=== PATIENT | male | born 1955 | race African-American/Black ===

== ENCOUNTER 2018-01-19 04:57 | Inpatient (IN) | payer BC ==
[2018-01-19] VITALS (8 sets, daily range): BP systolic 130–167; BP diastolic 70–92
[~2018-01-19] VITALS: Ht 190.5 cm; Wt 108.9 kg
[~2018-01-19 04:57] MED LIST: NAPROSYN500 M1 ORAL; PREDNISONE50 MG ORAL
[2018-01-19] MEDS ORDERED: REPAGLINIDE1 MG PO (05:19)
[2018-01-19] MEDS ORDERED: LABETALOL HCL200 MG ORAL (05:19)
[2018-01-19] MEDS ORDERED: AMLODIPINE BESY10 MG ORAL (05:19)
[2018-01-19] MEDS ORDERED: VP-VITE RX TAB1 EACH PO (05:19)
[2018-01-19] MEDS ORDERED: CATAPRES0.2 MG ORAL (05:19)
[2018-01-19] MEDS ORDERED: BETIMOL5 M2 OP (05:19)
[2018-01-19] MEDS ORDERED: ASPIR 8181 MG ORAL (05:19)
[2018-01-19] MEDS ORDERED: PRAVACHOL20 MG ORAL (05:19)
[2018-01-19 05:37] LABS: HEMATOCRIT 26.2 % (42.0-52.0); HEMOGLOBIN 8.2 G/DL (14.2-18.0); MEAN CORPUSCULAR VOLUME 95 FL (80-99); PLATELET COUNT 224 K/UL (150-450); RED BLOOD COUNT 2.76 M/UL (4.70-6.10); RED CELL DISTRIBUTION WIDTH 16.2 % (11.6-14.8); WHITE BLOOD COUNT 12.1 K/UL (4.8-10.8)
[2018-01-19 05:47] LABS: ANION GAP 8 mmol/L (5-15); BLOOD UREA NITROGEN 48 mg/dL (7-18); CALCIUM 9.1 MG/DL (8.5-10.1); CARBON DIOXIDE 30 MMOL/L (21-32); CHLORIDE 100 MMOL/L (98-107); CREATININE 7.4 MG/DL (0.55-1.30); POTASSIUM 3.8 MMOL/L (3.5-5.1); SODIUM 138 MMOL/L (136-145)
[2018-01-19 06:01] LABS: ALANINE AMINOTRANSFERASE 22 U/L (12-78); ALBUMIN 3.1 G/DL (3.4-5.0); ALBUMIN/GLOBULIN RATIO 0.7 (1.0-2.7); ALKALINE PHOSPHATASE 77 U/L (46-116); ASPARTATE AMINO TRANSFERASE 16 U/L (15-37); CKMB 1.7 NG/ML (0.0-3.6); CREATINE KINASE 206 U/L (26-308)
--- NOTE | 2018-01-19 06:17 | Emergency Room Report ---
History of Present Illness General Chief Complaint: Dizziness Source: Patient Present Illness HPI This is a pleasant 62-year-old -[place] male with a history of renal failure recently on hemodialysis for the last 2 weeks. His dialysis days are Monday, Monday, and Monday. He also has a history of anemia and getting Epogen and iron. He presents with chief complaint of dizziness and syncope. This morning he was getting up to get ready for dialysis. When he stood up, he had a syncopal episode. He said he felt lightheaded and dizzy. This happened again and his called 911. Per EMS, blood pressure was in the 90s. He received small amount of fluid and brought here. Right now he is asymptomatic and felt better. No chest pain. In the ambulance, he was driving leaving.. No fever or chills. Allergies: Coded Allergies: No Known Allergies (Unverified , 03/03/15) Patient History Past Medical History: see triage record, old chart reviewed, HTN, renal disease , dialysis Past Surgical History: other Pertinent Family History: none Social History: Denies: smoking Immunizations: other Reviewed Nursing Documentation: PMH: Agreed; PSxH: Agreed Nursing Documentation-PMH Past Medical History: No History, Except For Hx Hypertension: Yes Hx Diabetes: Yes - dm2 Hx Dialysis: Yes - MWF Review of Systems Eye: Denies: eye pain, blurred vision ENT: Denies: ear pain, nose congestion, throat swelling Respiratory: Denies: cough, shortness of breath Cardiovascular: Denies: chest pain, palpitations Gastrointestinal: Denies: abdominal pain, diarrhea, nausea, vomiting Musculoskeletal: Denies: back pain, joint pain Skin: Denies: rash Neurological: Reports: dizziness; Denies: headache, numbness Endocrine: Denies: increased thirst, increased urine Hematologic/Lymphatic: Denies: easy bruising All Other Systems: negative except mentioned in HPI Physical Exam Vital Signs Date Time Temp Pulse Resp B/P (MAP) Pulse Ox O2 Delivery O2 Flow Rate FiO2 01/19/18 04:59 98.2 76 16 134/75 99 Room Air 98.2 vitals normal Sp02 EP Interpretation: reviewed, normal General Appearance: well appearing, no apparent distress, alert Head: normocephalic, atraumatic Eyes: bilateral eye PERRL, bilateral eye EOMI ENT: hearing grossly normal, normal pharynx Neck: full range of motion, supple, no meningismus Respiratory: chest non-tender, lungs clear, normal breath sounds Cardiovascular #1: regular rate, rhythm, no murmur Gastrointestinal: normal bowel sounds, non tender, no mass, no organomegaly, no bruit, non-distended Musculoskeletal: back normal, gait/station normal, normal range of motion Psychiatric: mood/affect normal Skin: warm/dry Medical Decision Making Diagnostic Impression: Primary Impression: Syncope Qualified Codes: R55 - Syncope and collapse Additional Impression: Anemia Qualified Codes: D64.9 - Anemia, unspecified ER Course Patient presents with 2 episodes of syncope. This most likely is vasovagal but could also be arrhythmia, neurogenic to name a few. Because of his risk factor , will admit for further workup. I discussed the case with Dr. Sun who will admit. Lab Results Impression labs with anemia and renal failure EKG Diagnostic Results Rate: normal Rhythm: NSR ST Segments: no acute changes Rhythm Strip Diag. Results Rhythm Strip Time: 06:16 EP Interpretation: yes Rate: 70 Rhythm: NSR, no PVC's, no ectopy Chest X-Ray Diagnostic Results Chest X-Ray Diagnostic Results : Chest X-Ray Ordered: Yes # of Views/Limited/Complete: 1 View Indication: Shortness of Breath EP Interpretation: Yes Interpretation: no consolidation, no effusion, no pneumothorax, no acute cardiopulmonary disease Impression: No acute disease Electronically Signed by: Joseph Jones MD Last Vital Signs Date Time Temp Pulse Resp B/P (MAP) Pulse Ox O2 Delivery O2 Flow Rate FiO2 18 06:02 98.2 72 19 146/72 100 Room Air 98.2 Status: improved Disposition: ADMITTED INPATIENT Condition: Serious Referrals: NON PHYSICIAN (PCP) JOSEPH JONES M.D. January 19, 2018 06:17
--- NOTE | 2018-01-19 09:52 | Pulmonology Progress Note ---
Assessment/Plan Problems: (1) Syncope Assessment & Plan: ? vasovagal (2) ESRD (end stage renal disease) Assessment & Plan: RECENTLY STARTED ON HD (3) Hyperlipemia (4) DM (diabetes mellitus) (5) Dyspnea (6) Hypertension (7) Anemia Assessment/Plan -HD today per renal -F/U TTE and carotid US -F/U CT head -Repeat ECG and trop to R/O ACS -Cardiology evaluation -DVT Px: Hep SQ -Aspiration precautions -FC Subjective Allergies: Coded Allergies: No Known Allergies (Unverified , 03/03/15) Subjective 62M h/o DM, HTN, HL, CKD recently started on HD (MWF) via permacath was @ [facility] until this am, he woke up @ 430 to get ready for HD, suddenly became lightheaded and dizzy, no LOC, no change in vision or hearing, no N/T/W/I/A, + dyspnea, no cough, no wheezing, no F/C, no CP. He gets his care @ [facility] PMH: DM, HTN, HL, CKD/ESRD recently started on HD SHX: No T/E/D use ALL: NKDA Active Scripts Medications Dose Route/Sig Max Daily Dose Days Date Category Betimol (Timolol) 5 Ml Drops 5 Ml OP 01/19/18 Reported Catapres* (Clonidine HCl) 0.2 Mg Tablet 0.2 Mg ORAL Q8HR 01/19/18 Reported Repaglinide 1 Mg Tablet 1 Mg PO 01/19/18 Reported Grant Manager-Kassy Rx Tablet (Vit B Cmplx 3/FA/Vit C/Biotin) 1 Each Tablet 1 Each PO 01/19/18 Reported Amlodipine Besylate* (Amlodipine Besylate) 10 Mg Tablet 10 Mg ORAL DAILY 01/19/18 Reported Normodyne* (Labetalol HCl) 200 Mg Tablet 200 Mg ORAL EVERY 12 HOURS 01/19/18 Reported Pravachol* (Pravastatin Sodium) 20 Mg Tablet 40 Mg ORAL BEDTIME 01/19/18 Reported Aspir 81* (Aspirin) 81 Mg Tablet.dr 81 Mg ORAL DAILY 01/19/18 Reported Prednisone* (Prednisone) 50 Mg Tablet 50 Mg ORAL DAILY 03/03/15 Rx Naprosyn* (Naproxen) 500 Mg Tablet 500 Mg ORAL TWICE A DAY 03/03/15 Rx ROS: Negative other than HPI Objective Last 24 Hour Vital Signs Date Time Temp Pulse Resp B/P (MAP) Pulse Ox O2 Delivery O2 Flow Rate FiO2 01/19/18 08:08 98.2 78 19 146/72 100 Room Air 98.2 01/19/18 07:30 98.2 78 18 138/70 100 Room Air 98.2 01/19/18 06:02 98.2 72 19 146/72 100 Room Air 98.2 01/19/18 04:59 98.2 76 16 134/75 99 Room Air 98.2 General Appearance: WD/WN, no acute distress HEENT: normocephalic, atraumatic, anicteric, mucous membranes moist Respiratory/Chest: chest wall non-tender, lungs clear, normal breath sounds, no respiratory distress, other - permacath Cardiovascular: normal peripheral pulses, normal rate, regular rhythm Abdomen: normal bowel sounds, soft, non tender, no organomegaly, non distended , no mass Extremities: no cyanosis, no clubbing, no edema Laboratory Tests 01/19/18 05:30: White Blood Count 12.1H, Red Blood Count 2.76L, Hemoglobin 8.2L, Hematocrit 26.2L, Mean Corpuscular Volume 95, Mean Corpuscular Hemoglobin 29.8, Mean Corpuscular Hemoglobin Concent 31.5L, Red Cell Distribution Width 16.2H, Platelet Count 224, Mean Platelet Volume 6.1L, Neutrophils (%) (Auto) , Lymphocytes (%) (Auto) , Monocytes (%) (Auto) , Eosinophils (%) (Auto) , Basophils (%) (Auto) , Sodium Level 138, Potassium Level 3.8, Chloride Level 100 , Carbon Dioxide Level 30, Anion Gap 8, Blood Urea Nitrogen 48H, Creatinine 7.4H , Estimat Glomerular Filtration Rate 9.1, Glucose Level 173H, Calcium Level 9.1 , Total Bilirubin 1.0, Aspartate Amino Transf (AST/SGOT) 16, Alanine Aminotransferase (ALT/SGPT) 22, Alkaline Phosphatase 77, Total Creatine Kinase 206, Creatine Kinase MB 1.7, Creatine Kinase MB Relative Index 0.8, Troponin I 0.024, Total Protein 7.7, Albumin 3.1L, Globulin 4.6, Albumin/Globulin Ratio 0.7L Current Medications Medications (Trade) Dose Ordered Sig/Valerie Route PRN Reason Start Time Stop Time Status Last Admin Dose Admin Amlodipine Besylate (Norvasc) 10 mg DAILY ORAL 01/20/18 09:00 02/19/18 08:59 UNV Aspirin (Ecotrin) 81 mg DAILY ORAL 01/20/18 09:00 02/19/18 08:59 UNV Clonidine HCl (Catapres tab) 0.2 mg Q8HR ORAL 01/19/18 14:00 02/18/18 13:59 UNV Dextrose (Dextrose 50%) 25 ml STAT PRN IV Hypoglycemia 01/19/18 09:45 02/18/18 09:44 UNV Dextrose (Dextrose 50%) 50 ml STAT PRN IV Hypoglycemia 01/19/18 09:45 02/18/18 09:44 UNV Heparin Sodium (Porcine) (Heparin 5000 units/ml) 5,000 units EVERY 12 HOURS SUBQ 01/19/18 21:00 02/18/18 20:59 UNV Insulin Aspart (NovoLOG) BEFORE MEALS AND HS SUBQ 01/19/18 11:30 02/18/18 11:29 UNV Labetalol HCl (Normodyne) 200 mg EVERY 12 HOURS ORAL 01/19/18 21:00 02/18/18 20:59 UNV Pravastatin Sodium (Pravachol) 40 mg BEDTIME ORAL 01/19/18 21:00 02/18/18 20:59 UNV Repaglinide (Prandin) 1 mg DAILY ORAL 01/20/18 09:00 02/19/18 08:59 UNV CELSO SIM M.D. January 19, 2018 09:52
--- NOTE | 2018-01-19 10:59 | Consultation ---
Consult Note Consult Note asked to eval for dialysis treatment Chief Complaint: Dizziness This is a pleasant 62-year-old -Maltese male with a history of renal failure recently on hemodialysis for the last 2 weeks. His dialysis days are Monday, Monday, and Monday. He also has a history of anemia and getting Epogen and iron. He presents with chief complaint of dizziness and syncope. This morning he was getting up to get ready for dialysis. When he stood up, he had a syncopal episode. He said he felt lightheaded and dizzy. This happened again and his called 911. Per EMS, blood pressure was in the 90s. He received small amount of fluid and brought here. Right now he is asymptomatic and felt better. No chest pain. In the ambulance, he was driving leaving.. No fever or chills. Past Medical History: No History, Except For Hx Hypertension: Yes Hx Diabetes: Yes - dm2 Hx Dialysis: Yes - MWF interviewed- examined- on HD past 2 weeks has right permacath Assessment/Plan 1) Syncope (2) ESRD (end stage renal disease) (3) Hyperlipemia (4) DM (diabetes mellitus) (5) Dyspnea (6) Hypertension (7) Anemia HD Keep BP and HR in check Iron panel EPO SQ syncope bowser per orders STEVEN STANLEY January 19, 2018 10:59
[2018-01-19] MEDS ORDERED: HydrALAZINE 25mg tab ORAL PRN (12:00)
[2018-01-19] MEDS: NovoLOG Insulin Flexpen SUBQ SCH ×3 (12:06→21:52)
[2018-01-19 12:12] LABS: CHOLESTEROL 122 MG/DL (< 200); HDL CHOLESTEROL 50 MG/DL (40-60); TRIGLYCERIDES 60 MG/DL (30-150)
--- NOTE | 2018-01-19 13:24 | Diagnostic Imaging Report ---
Indication: Shortness of breath Technique: One view of the chest Comparison: none Findings: Lungs and pleural spaces are clear. The heart size is borderline enlarged. Impression: Borderline cardiomegaly. No acute process
--- NOTE | 2018-01-19 13:26 | Cardiac Electrophysiology PN ---
Subjective Subjective [id number] Objective Last 24 Hour Vital Signs Date Time Temp Pulse Resp B/P (MAP) Pulse Ox O2 Delivery O2 Flow Rate FiO2 01/19/18 08:08 98.2 78 19 146/72 100 Room Air 98.2 01/19/18 07:30 98.2 78 18 138/70 100 Room Air 98.2 01/19/18 06:02 98.2 72 19 146/72 100 Room Air 98.2 01/19/18 04:59 98.2 76 16 134/75 99 Room Air 98.2 Laboratory Tests Test 01/19/18 05:30 01/19/18 11:10 White Blood Count 12.1 K/UL (4.8-10.8) H Red Blood Count 2.76 M/UL (4.70-6.10) L Hemoglobin 8.2 G/DL (14.2-18.0) L Hematocrit 26.2 % (42.0-52.0) L Mean Corpuscular Volume 95 FL (80-99) Mean Corpuscular Hemoglobin 29.8 PG (27.0-31.0) Mean Corpuscular Hemoglobin Concent 31.5 G/DL (32.0-36.0) L Red Cell Distribution Width 16.2 % (11.6-14.8) H Platelet Count 224 K/UL (150-450) Mean Platelet Volume 6.1 FL (6.5-10.1) L Neutrophils (%) (Auto) % (45.0-75.0) Lymphocytes (%) (Auto) % (20.0-45.0) Monocytes (%) (Auto) % (1.0-10.0) Eosinophils (%) (Auto) % (0.0-3.0) Basophils (%) (Auto) % (0.0-2.0) Sodium Level 138 MMOL/L (136-145) Potassium Level 3.8 MMOL/L (3.5-5.1) Chloride Level 100 MMOL/L (98-107) Carbon Dioxide Level 30 MMOL/L (21-32) Anion Gap 8 mmol/L (5-15) Blood Urea Nitrogen 48 mg/dL (7-18) H Creatinine 7.4 MG/DL (0.55-1.30) H Estimat Glomerular Filtration Rate 9.1 mL/min (>60) Glucose Level 173 MG/DL (74-106) H Calcium Level 9.1 MG/DL (8.5-10.1) Total Bilirubin 1.0 MG/DL (0.2-1.0) Aspartate Amino Transf (AST/SGOT) 16 U/L (15-37) Alanine Aminotransferase (ALT/SGPT) 22 U/L (12-78) Alkaline Phosphatase 77 U/L (46-116) Total Creatine Kinase 206 U/L (26-308) Creatine Kinase MB 1.7 NG/ML (0.0-3.6) Creatine Kinase MB Relative Index 0.8 Troponin I 0.024 ng/mL (0.000-0.056) 0.025 ng/mL (0.000-0.056) Total Protein 7.7 G/DL (6.4-8.2) Albumin 3.1 G/DL (3.4-5.0) L Globulin 4.6 g/dL Albumin/Globulin Ratio 0.7 (1.0-2.7) L Hemoglobin A1c 5.0 % (4.3-6.0) C-Reactive Protein, Quantitative 6.7 mg/dL (0.00-0.90) H Triglycerides Level 60 MG/DL (30-150) Cholesterol Level 122 MG/DL (< 200) LDL Cholesterol 67 mg/dL (<100) HDL Cholesterol 50 MG/DL (40-60) Cholesterol/HDL Ratio 2.4 (3.3-4.4) L Juan Luis Clark MD January 19, 2018 13:26
[2018-01-19] MEDS ORDERED: cloNIDine 0.2mg Tab ORAL SCH (14:00)
--- NOTE | 2018-01-19 15:06 | History and Physical ---
History of Present Illness General Date patient seen: January 19, 2018 Time patient seen: 11:10 Reason for Hospitalization: Dizziness Present Illness HPI 62 y/o male with a PMH of ESRD on recent HD x 2 weeks, HLD, T2DM, HTN, CVA, and anemia presented from home for syncope this AM. Patient states that he got up at 3 am today and felt dizzy upon standing, and subsequently had a syncopal episode. He states that this lasted about a minute and when he got up a second time, he felt dizzy again, which prompted him to come to the ER. Patient states that he missed his dialysis today and generally has it MWF. He states that his BP has been consistently in the 150s. He also states that he recently went to [facility] for similar symptoms where they diagnosed him with ESRD and started him on HD. Patient states that he underwent a CT head, which showed two small strokes. He denies any head trauma. Denies headaches, f/c, n/v, abdominal pain, dysuria, chest pain, sob. Allergies: Coded Allergies: No Known Allergies (Unverified , 03/03/15) Medication History Scheduled Amlodipine Besylate* (Amlodipine Besylate*), 10 MG ORAL DAILY, (Reported) Aspirin* (Aspir 81*), 81 MG ORAL DAILY, (Reported) Clonidine Hcl* (Catapres*), 0.2 MG ORAL Q8HR, (Reported) Labetalol Hcl* (Normodyne*), 200 MG ORAL EVERY 12 HOURS, (Reported) Naproxen* (Naprosyn*), 500 MG ORAL TWICE A DAY Pravastatin Sod* (Pravachol*), 40 MG ORAL BEDTIME, (Reported) Prednisone* (Prednisone*), 50 MG ORAL DAILY Miscellaneous Medications Repaglinide (Repaglinide), 1 MG PO, (Reported) Timolol (Betimol), 5 ML OP, (Reported) Vit B Cmplx 3/FA/Vit C/Biotin (Optical Element Coater-Kassy Rx Tablet), 1 EACH PO, (Reported) Patient History History Provided By: Patient Healthcare decision maker Resuscitation status Full Code Advanced Directive on File Review of Systems All Other Systems: negative except mentioned in HPI Physical Exam General Appearance: no apparent distress, alert Lines, tubes and drains: other - R permacath HEENT: normocephalic, atraumatic Neck: non-tender, normal alignment, supple Respiratory/Chest: chest wall non-tender, lungs clear, normal breath sounds Cardiovascular/Chest: normal peripheral pulses, normal rate, regular rhythm Abdomen: normal bowel sounds, non tender, soft Extremities: normal range of motion, non-tender Skin Exam: normal pigmentation, warm/dry Neurologic: car checker II-XII grossly normal, no motor/sensory deficits, alert, oriented x 3 Last 24 Hour Vital Signs Date Time Temp Pulse Resp B/P (MAP) Pulse Ox O2 Delivery O2 Flow Rate FiO2 01/19/18 08:08 98.2 78 19 146/72 100 Room Air 98.2 01/19/18 07:30 98.2 78 18 138/70 100 Room Air 98.2 01/19/18 06:02 98.2 72 19 146/72 100 Room Air 98.2 01/19/18 04:59 98.2 76 16 134/75 99 Room Air 98.2 Laboratory Tests Test 01/19/18 05:30 01/19/18 11:10 White Blood Count 12.1 K/UL (4.8-10.8) H Red Blood Count 2.76 M/UL (4.70-6.10) L Hemoglobin 8.2 G/DL (14.2-18.0) L Hematocrit 26.2 % (42.0-52.0) L Mean Corpuscular Volume 95 FL (80-99) Mean Corpuscular Hemoglobin 29.8 PG (27.0-31.0) Mean Corpuscular Hemoglobin Concent 31.5 G/DL (32.0-36.0) L Red Cell Distribution Width 16.2 % (11.6-14.8) H Platelet Count 224 K/UL (150-450) Mean Platelet Volume 6.1 FL (6.5-10.1) L Neutrophils (%) (Auto) % (45.0-75.0) Lymphocytes (%) (Auto) % (20.0-45.0) Monocytes (%) (Auto) % (1.0-10.0) Eosinophils (%) (Auto) % (0.0-3.0) Basophils (%) (Auto) % (0.0-2.0) Sodium Level 138 MMOL/L (136-145) Potassium Level 3.8 MMOL/L (3.5-5.1) Chloride Level 100 MMOL/L (98-107) Carbon Dioxide Level 30 MMOL/L (21-32) Anion Gap 8 mmol/L (5-15) Blood Urea Nitrogen 48 mg/dL (7-18) H Creatinine 7.4 MG/DL (0.55-1.30) H Estimat Glomerular Filtration Rate 9.1 mL/min (>60) Glucose Level 173 MG/DL (74-106) H Calcium Level 9.1 MG/DL (8.5-10.1) Total Bilirubin 1.0 MG/DL (0.2-1.0) Aspartate Amino Transf (AST/SGOT) 16 U/L (15-37) Alanine Aminotransferase (ALT/SGPT) 22 U/L (12-78) Alkaline Phosphatase 77 U/L (46-116) Total Creatine Kinase 206 U/L (26-308) Creatine Kinase MB 1.7 NG/ML (0.0-3.6) Creatine Kinase MB Relative Index 0.8 Troponin I 0.024 ng/mL (0.000-0.056) 0.025 ng/mL (0.000-0.056) Total Protein 7.7 G/DL (6.4-8.2) Albumin 3.1 G/DL (3.4-5.0) L Globulin 4.6 g/dL Albumin/Globulin Ratio 0.7 (1.0-2.7) L Hemoglobin A1c 5.0 % (4.3-6.0) C-Reactive Protein, Quantitative 6.7 mg/dL (0.00-0.90) H Triglycerides Level 60 MG/DL (30-150) Cholesterol Level 122 MG/DL (< 200) LDL Cholesterol 67 mg/dL (<100) HDL Cholesterol 50 MG/DL (40-60) Cholesterol/HDL Ratio 2.4 (3.3-4.4) L Height (Feet): 6 Height (Inches): 3.00 Weight (Pounds): 240 Medications Current Medications Medications (Trade) Dose Ordered Sig/Valerie Route PRN Reason Start Time Stop Time Status Last Admin Dose Admin Amlodipine Besylate (Norvasc) 10 mg DAILY ORAL 01/20/18 09:00 02/19/18 08:59 Aspirin (Ecotrin) 81 mg DAILY ORAL 01/20/18 09:00 02/19/18 08:59 Dextrose (Dextrose 50%) 25 ml STAT PRN IV Hypoglycemia 01/19/18 12:00 02/18/18 11:59 Dextrose (Dextrose 50%) 50 ml STAT PRN IV Hypoglycemia 01/19/18 12:00 02/18/18 11:59 Epoetin Molina (Procrit (for ESRD on dialysis)) 10,000 units MON-MON-MON SUBQ 01/19/18 21:00 02/18/18 20:59 Heparin Sodium (Porcine) (Heparin 5000 units/ml) 5,000 units EVERY 12 HOURS SUBQ 01/19/18 21:00 02/18/18 20:59 Hydralazine HCl (Apresoline) 25 mg Q4H PRN ORAL for bp over 160 syst 01/19/18 12:00 02/18/18 11:59 Insulin Aspart (NovoLOG) BEFORE MEALS AND HS SUBQ 01/19/18 12:30 02/18/18 12:29 01/19/18 12:06 Labetalol HCl (Normodyne) 200 mg EVERY 12 HOURS ORAL 01/19/18 21:00 02/18/18 20:59 Pravastatin Sodium (Pravachol) 40 mg BEDTIME ORAL 01/19/18 21:00 02/18/18 20:59 Repaglinide (Prandin) 1 mg DAILY ORAL 01/20/18 09:00 02/19/18 08:59 Assessment/Plan Problem List: (1) Anemia ICD Codes: D64.9 - Anemia, unspecified SNOMED: 998234136 Qualifiers: Qualified Codes: D64.9 - Anemia, unspecified (2) Hyperlipemia ICD Codes: E78.5 - Hyperlipidemia, unspecified SNOMED: 95042326 (3) Hypertension ICD Codes: I10 - Essential (primary) hypertension SNOMED: 37212671 (4) DM (diabetes mellitus) ICD Codes: E11.9 - Type 2 diabetes mellitus without complications SNOMED: 13497281 (5) ESRD (end stage renal disease) ICD Codes: N18.6 - End stage renal disease SNOMED: 81305303 (6) Syncope ICD Codes: R55 - Syncope and collapse SNOMED: 110021535 Qualifiers: Qualified Codes: R55 - Syncope and collapse Status: stable, progressing Assessment/Plan - Admit to inpatient - Nephrology and cardiology consulted - HD today per renal - syncope w/u: TTE, tele monitor, carotid U/S, orthostatics - f/u CT head - mild leuks but patient was on prednisone. will check CXR and UA to r/o infection for now. - Monitor CBC and BMP - check lipid panel, A1c, TSH - Continue home meds - Requested records from [facility] (patient had a recent hospitalization there 2 weeks ago) - Pain control and supportive care DVT Prophylaxis: HSQ Code Status: Full Hospital Classification Declaration: Based on this initial evaluation, and depending on the patient's clinical course, I anticipate that this patient will require hospitalization for 2-3 days for syncope workup and close respiratory/ hemodynamic monitoring. Disposition: Once the patient is stable to leave the hospital, I anticipate the patient will likely be discharged to the following environment: home with HH vs SNF I spent 72 minutes on this patient's case, and 39 minutes were dedicated to counseling and/or care coordination. Discussed with patient/family, nursing staff, SW/CM, infant nanny, and roofer applicator regarding clinical status, treatment course, and disposition planning. Time of note may not reflect time of encounter. Magdalene Arriaga NP January 19, 2018 15:06
--- NOTE | 2018-01-19 16:05 | Diagnostic Imaging Report ---
Indications: Altered level of consciousness Technique: Spiral acquisitions obtained through the brain. Angled axial and coronal 5 x 5 mm slices were reconstructed. Total dose length product 1478.13 mGycm. CTDI vol(s) 70.38 mGy. Dose reduction achieved using automated exposure control Comparison: None. Findings: There is an old lacunar infarct in the anterior limb of the left internal capsule. No acute intracranial hemorrhage or edema. No mass effect nor midline shift. Normal mckinnon-white differentiation. Intact calvarium. Visualized orbits and sinuses are unremarkable. The mastoids are clear. Impression: Old left basal ganglial lacunar infarct. Negative for acute intracranial bleed or mass effect The CT scanner at [facility] is accredited by the [employer] and the scans are performed using protocols designed to limit radiation exposure to as low as reasonably achievable to attain images of sufficient resolution adequate for diagnostic evaluation.
[2018-01-19] MEDS: Labetalol 200mg tab ORAL SCH (20:57)
[2018-01-19] MEDS: Heparin 5000 units/ml inj SUBQ SCH (21:00)
[2018-01-19] MEDS ORDERED: Epogen (for ESRD on dialysis) SUBQ SCH (21:00)
--- NOTE | 2018-01-19 22:15 | Consultation ---
DATE OF CONSULTATION: 01/19/2018 CARDIOLOGY CONSULTATION CONSULTING PHYSICIAN: Juan Luis Clark M.D. REFERRING PHYSICIAN: Gary Sun M.D. REASON FOR CONSULTATION: Syncope in the patient with hypertension. HISTORY OF PRESENT ILLNESS: The patient is a very pleasant 62-year-old gentleman with history of hypertension, diabetes, and hyperlipidemia as well as end-stage renal disease, who was recently started on hemodialysis about two weeks ago. The patient was at home and apparently got up and suddenly had a syncopal episode. The patient had similar episodes about two weeks ago and he was at an outside facility and the evaluation was negative. At the time of my evaluation, the patient denies any chest pain, palpitation, or shortness of breath. PAST MEDICAL HISTORY: 1. Hypertension. 2. Diabetes. 3. Hyperlipidemia. 4. End-stage renal disease, on hemodialysis. 5. History of anemia. FAMILY HISTORY: Noncontributory. SOCIAL HISTORY: He lives at home. His at the bedside. Does not smoke or drink alcohol. REVIEW OF SYSTEMS: Review of systems was performed and was negative other than what was mentioned in the history of present illness. PHYSICAL EXAMINATION: VITAL SIGNS: Blood pressure is 146/72, pulse 78, respirations 18, and temperature 98.2 degrees. HEAD AND NECK: No JVD. LUNGS: Clear. CARDIOVASCULAR: Regular S1 and S2 with no gallop or murmur. ABDOMEN: Soft. EXTREMITIES: No pitting edema. Dialysis access in the right IJ. LABORATORY AND DIAGNOSTIC DATA: His EKG shows sinus rhythm with LVH and diffuse T-wave abnormalities. His labs show white count of 12.1, hemoglobin 8.2, hematocrit 26.2, and platelet count is 224. Sodium 138, potassium 3.8, BUN of 48, creatinine 7.4, and glucose of 173. His troponin negative x2. ASSESSMENT AND PLAN: 1. Syncope. This is likely due to patient's orthostasis. This happened from sitting down to standing up. The patient will be ruled out for myocardial infarction by serial cardiac enzymes. Echocardiogram was ordered and performed which showed ejection fraction of 60%. The patient refused carotid duplex as he states it was done at [facility]. 2. History of hypertension. The patient is on Norvasc 10 mg daily and labetalol 200 mg b.i.d. and hemodialysis. 3. Hyperlipidemia, on Pravachol. 4. End-stage renal disease, on hemodialysis. 5. Anemia, on Procrit. Thank you very much, Dr. Sun, for allowing me to participate in the care of this patient. Please do not hesitate to contact me for any questions regarding my evaluation. The case was discussed with the patient's and nurse at the bedside. Juan Luis Clark M.D. DR: JUSTIN JOB#: [id number] CC:
--- NOTE | 2018-01-19 22:33 | Cardiology Report ---
APPROVED REPORT EKG Measurement Heart [id number] Normal sinus rhythm Minimal voltage criteria for LVH, may be normal variant Abnormal QRS-T angle, consider primary T wave abnormality Abnormal ECG
[2018-01-20] VITALS: BP 136/78
[2018-01-20 04:00] VITALS: BP 135/76
[2018-01-20 06:06] LABS: HEMATOCRIT 26.1 % (42.0-52.0); MEAN CORPUSCULAR VOLUME 95 FL (80-99); PLATELET COUNT 242 K/UL (150-450); RED BLOOD COUNT 2.74 M/UL (4.70-6.10); RED CELL DISTRIBUTION WIDTH 15.4 % (11.6-14.8); WHITE BLOOD COUNT 12.5 K/UL (4.8-10.8)
[2018-01-20] MEDS: NovoLOG Insulin Flexpen SUBQ SCH ×3 (06:12→17:02)
[2018-01-20 06:32] LABS: ALANINE AMINOTRANSFERASE 23 U/L (12-78); ALBUMIN/GLOBULIN RATIO 0.6 (1.0-2.7); ALKALINE PHOSPHATASE 78 U/L (46-116); ANION GAP 6 mmol/L (5-15); ASPARTATE AMINO TRANSFERASE 16 U/L (15-37); BLOOD UREA NITROGEN 30 mg/dL (7-18); CARBON DIOXIDE 35 MMOL/L (21-32); CHLORIDE 99 MMOL/L (98-107); CHOLESTEROL 141 MG/DL (< 200); CREATININE 5.6 MG/DL (0.55-1.30); FERRITIN 308 NG/ML (8-388); GAMMA GLUTAMYL TRANSPEPTIDASE 52 U/L (5-85); HDL CHOLESTEROL 54 MG/DL (40-60); POTASSIUM 3.9 MMOL/L (3.5-5.1); SODIUM 140 MMOL/L (136-145); TRIGLYCERIDES 61 MG/DL (30-150)
[2018-01-20 07:07] LABS: % IRON SATURATION 8 % (15-50); IRON 17 ug/dL (50-175); TOTAL IRON BINDING CAPACITY 215 ug/dL (250-450)
[2018-01-20 08:00] VITALS: BP 168/95
[2018-01-20] MEDS: Labetalol 200mg tab ORAL SCH (08:25)
[2018-01-20] MEDS: Heparin 5000 units/ml inj SUBQ SCH (08:27)
[2018-01-20] MEDS ORDERED: Aspirin EC 81mg tab ORAL SCH (09:00)
[2018-01-20] MEDS ORDERED: Repaglinide 1mg tab ORAL SCH (09:00)
--- NOTE | 2018-01-20 10:26 | Nephrology Progress Note ---
Assessment/Plan Problem List: (1) ESRD (end stage renal disease) (2) DM (diabetes mellitus) (3) Hypertension (4) Anemia (5) Syncope Assessment 1) Syncope (2) ESRD (end stage renal disease) (3) Hyperlipemia (4) DM (diabetes mellitus) (5) Dyspnea (6) Hypertension (7) Anemia Plan HD 01/19 next 01/22 Keep BP and HR in check Iron panel EPO SQ syncope bowser per orders Subjective ROS Limited/Unobtainable: No Constitutional: Reports: malaise Objective Objective Last 24 Hour Vital Signs Date Time Temp Pulse Resp B/P (MAP) Pulse Ox O2 Delivery O2 Flow Rate FiO2 01/20/18 08:25 81 168/95 01/20/18 08:25 81 168/95 01/20/18 08:00 98.4 81 20 168/95 100 Room Air 98.4 01/20/18 04:10 89 01/20/18 04:05 87 01/20/18 04:00 85 01/20/18 04:00 99.6 85 20 135/76 99 Room Air 99.6 01/20/18 04:00 75 01/20/18 00:00 99.1 96 20 136/78 96 Room Air 99.1 01/19/18 21:00 82 01/19/18 20:57 86 136/72 01/19/18 20:34 Room Air 01/19/18 20:30 98.7 84 21 155/79 99 Room Air 98.7 01/19/18 20:21 97.9 79 20 167/88 Room Air 97.9 01/19/18 16:30 Room Air 01/19/18 16:30 97.6 81 20 165/87 Room Air 97.6 01/19/18 16:00 77 01/19/18 16:00 98.2 76 18 150/79 98 Room Air 98.2 01/19/18 12:00 78 01/19/18 12:00 97.3 78 18 155/92 95 Room Air 97.3 Intake and Output 01/19/18 01/20/18 19:00 07:00 Intake Total 120 ml 400 ml Output Total 0 ml 1050 ml Balance 120 ml -650 ml Intake Oral 120 ml 400 ml Output Urine Total 0 ml Hemodialysis UF 1050 ml Laboratory Tests 01/19/18 11:10: Hemoglobin A1c 5.0, Troponin I 0.025, C-Reactive Protein, Quantitative 6.7H, Triglycerides Level 60, Cholesterol Level 122, LDL Cholesterol 67, HDL Cholesterol 50, Cholesterol/HDL Ratio 2.4L 01/20/18 04:50: Hemoglobin A1c 5.5, Troponin I 0.030, Triglycerides Level 61, Cholesterol Level 141, LDL Cholesterol 74, HDL Cholesterol 54, Cholesterol/HDL Ratio 2.6L, White Blood Count 12.5H, Red Blood Count 2.74L, Hemoglobin 8.0L, Hematocrit 26.1L, Mean Corpuscular Volume 95, Mean Corpuscular Hemoglobin 29.2, Mean Corpuscular Hemoglobin Concent 30.6L, Red Cell Distribution Width 15.4H, Platelet Count 242 , Mean Platelet Volume 6.4L, Neutrophils (%) (Auto) , Lymphocytes (%) (Auto) , Monocytes (%) (Auto) , Eosinophils (%) (Auto) , Basophils (%) (Auto) , Differential Total Cells Counted 100, Neutrophils % (Manual) 81H, Lymphocytes % (Manual) 11L, Monocytes % (Manual) 7, Eosinophils % (Manual) 1, Basophils % ( Manual) 0, Band Neutrophils 0, Platelet Estimate Adequate, Platelet Morphology Normal, Anisocytosis 1+, Sodium Level 140, Potassium Level 3.9, Chloride Level 99, Carbon Dioxide Level 35H, Anion Gap 6, Blood Urea Nitrogen 30H, Creatinine 5.6H, Estimat Glomerular Filtration Rate 12.6, Glucose Level 123H, Uric Acid 3.9 , Calcium Level 9.0, Phosphorus Level 3.0, Magnesium Level 1.9, Iron Level 17L, Total Iron Binding Capacity 215L, Percent Iron Saturation 8L, Unsaturated Iron Binding 198, Ferritin 308, Total Bilirubin 1.0, Gamma Glutamyl Transpeptidase 52 , Aspartate Amino Transf (AST/SGOT) 16, Alanine Aminotransferase (ALT/SGPT) 23, Alkaline Phosphatase 78, Pro-B-Type Natriuretic Peptide 3124H, Total Protein 7.9 , Albumin 3.0L, Globulin 4.9, Albumin/Globulin Ratio 0.6L, Vitamin B12 Level > 2000H, Folate 17.2, Thyroid Stimulating Hormone (TSH) 0.489 Height (Feet): 6 Height (Inches): 3.00 Weight (Pounds): 240 General Appearance: no apparent distress Cardiovascular: normal rate STEVEN STANLEY January 20, 2018 10:26
[2018-01-20 12:00] VITALS: BP_SYST 112; BP_SYST 155; BP_SYST 156; BP_DIAS 59; BP_DIAS 83; BP_DIAS 88
--- NOTE | 2018-01-20 13:50 | Internal Med Progress Note ---
Subjective Physician Name Pavan Navarrete Attending Physician Gary Sun M.D. Current Medications Medications (Trade) Dose Ordered Sig/Valerie Route PRN Reason Start Time Stop Time Status Last Admin Dose Admin Amlodipine Besylate (Norvasc) 10 mg DAILY ORAL 01/20/18 09:00 02/19/18 08:59 01/20/18 08:25 Aspirin (Ecotrin) 81 mg DAILY ORAL 01/20/18 09:00 02/19/18 08:59 01/20/18 08:24 Dextrose (Dextrose 50%) 25 ml STAT PRN IV Hypoglycemia 01/19/18 12:00 02/18/18 11:59 Dextrose (Dextrose 50%) 50 ml STAT PRN IV Hypoglycemia 01/19/18 12:00 02/18/18 11:59 Epoetin Molina (Procrit (for ESRD on dialysis)) 10,000 units MON-WED-MON SUBQ 01/19/18 21:00 02/18/18 20:59 01/19/18 21:50 Heparin Sodium (Porcine) (Heparin 5000 units/ml) 5,000 units EVERY 12 HOURS SUBQ 01/19/18 21:00 02/18/18 20:59 01/20/18 08:27 Hydralazine HCl (Apresoline) 25 mg Q4H PRN ORAL for bp over 160 syst 01/19/18 12:00 02/18/18 11:59 Insulin Aspart (NovoLOG) BEFORE MEALS AND HS SUBQ 01/19/18 12:30 02/18/18 12:29 01/20/18 12:02 Labetalol HCl (Normodyne) 200 mg EVERY 8 HOURS ORAL 01/20/18 14:00 02/18/18 20:59 Pravastatin Sodium (Pravachol) 40 mg BEDTIME ORAL 01/19/18 21:00 02/18/18 20:59 01/19/18 20:55 Repaglinide (Prandin) 1 mg DAILY ORAL 01/20/18 09:00 02/19/18 08:59 01/20/18 08:24 Allergies: Coded Allergies: No Known Allergies (Unverified , 03/03/15) Constitutional: Reports: chills, diaphoresis, fever HEENT: Reports: eye pain, blurred vision Cardiovascular: Reports: chest pain, edema, irregular heart rate, lightheadedness Respiratory: Reports: cough, orthopnea, shortness of breath Gastrointestinal/Abdominal: Reports: no symptoms, abdomen distended, poor fluid intake Neurologic/Psychiatric: Reports: anxiety Objective Last Vital Signs Date Time Temp Pulse Resp B/P (MAP) Pulse Ox O2 Delivery O2 Flow Rate FiO2 01/20/18 12:21 80 01/20/18 08:25 168/95 01/20/18 08:00 98.4 20 100 Room Air 98.4 General Appearance: WD/WN EENT: PERRL/EOMI Neck: supple Respiratory/Chest: chest wall non-tender Abdomen: normal bowel sounds, soft Edema: trace edema Neurologic: no motor/sensory deficits, alert, oriented x 3, responsive Laboratory Tests Test 01/20/18 04:50 White Blood Count 12.5 K/UL (4.8-10.8) H Red Blood Count 2.74 M/UL (4.70-6.10) L Hemoglobin 8.0 G/DL (14.2-18.0) L Hematocrit 26.1 % (42.0-52.0) L Mean Corpuscular Volume 95 FL (80-99) Mean Corpuscular Hemoglobin 29.2 PG (27.0-31.0) Mean Corpuscular Hemoglobin Concent 30.6 G/DL (32.0-36.0) L Red Cell Distribution Width 15.4 % (11.6-14.8) H Platelet Count 242 K/UL (150-450) Mean Platelet Volume 6.4 FL (6.5-10.1) L Neutrophils (%) (Auto) % (45.0-75.0) Lymphocytes (%) (Auto) % (20.0-45.0) Monocytes (%) (Auto) % (1.0-10.0) Eosinophils (%) (Auto) % (0.0-3.0) Basophils (%) (Auto) % (0.0-2.0) Differential Total Cells Counted 100 Neutrophils % (Manual) 81 % (45-75) H Lymphocytes % (Manual) 11 % (20-45) L Monocytes % (Manual) 7 % (1-10) Eosinophils % (Manual) 1 % (0-3) Basophils % (Manual) 0 % (0-2) Band Neutrophils 0 % (0-8) Platelet Estimate Adequate Platelet Morphology Normal Anisocytosis 1+ Sodium Level 140 MMOL/L (136-145) Potassium Level 3.9 MMOL/L (3.5-5.1) Chloride Level 99 MMOL/L (98-107) Carbon Dioxide Level 35 MMOL/L (21-32) H Anion Gap 6 mmol/L (5-15) Blood Urea Nitrogen 30 mg/dL (7-18) H Creatinine 5.6 MG/DL (0.55-1.30) H Estimat Glomerular Filtration Rate 12.6 mL/min (>60) Glucose Level 123 MG/DL (74-106) H Hemoglobin A1c 5.5 % (4.3-6.0) Uric Acid 3.9 MG/DL (2.6-7.2) Calcium Level 9.0 MG/DL (8.5-10.1) Phosphorus Level 3.0 MG/DL (2.5-4.9) Magnesium Level 1.9 MG/DL (1.8-2.4) Iron Level 17 ug/dL (50-175) L Total Iron Binding Capacity 215 ug/dL (250-450) L Percent Iron Saturation 8 % (15-50) L Unsaturated Iron Binding 198 ug/dL (112-346) Ferritin 308 NG/ML (8-388) Total Bilirubin 1.0 MG/DL (0.2-1.0) Gamma Glutamyl Transpeptidase 52 U/L (5-85) Aspartate Amino Transf (AST/SGOT) 16 U/L (15-37) Alanine Aminotransferase (ALT/SGPT) 23 U/L (12-78) Alkaline Phosphatase 78 U/L (46-116) Troponin I 0.030 ng/mL (0.000-0.056) Pro-B-Type Natriuretic Peptide 3124 pg/mL (0-125) H Total Protein 7.9 G/DL (6.4-8.2) Albumin 3.0 G/DL (3.4-5.0) L Globulin 4.9 g/dL Albumin/Globulin Ratio 0.6 (1.0-2.7) L Triglycerides Level 61 MG/DL (30-150) Cholesterol Level 141 MG/DL (< 200) LDL Cholesterol 74 mg/dL (<100) HDL Cholesterol 54 MG/DL (40-60) Cholesterol/HDL Ratio 2.6 (3.3-4.4) L Vitamin B12 Level > 2000 PG/ML (193-986) H Folate 17.2 NG/ML (8.6-58.9) Thyroid Stimulating Hormone (TSH) 0.489 uiU/mL (0.358-3.740) Intake and Output 01/19/18 01/20/18 19:00 07:00 Intake Total 120 ml 400 ml Output Total 0 ml 1050 ml Balance 120 ml -650 ml Intake Oral 120 ml 400 ml Output Urine Total 0 ml Hemodialysis UF 1050 ml Assessment/Plan Problem List: (1) Anemia (2) Dyspnea (3) Hyperlipemia (4) Hypertension (5) DM (diabetes mellitus) (6) Syncope (7) ESRD (end stage renal disease) Assessment/Plan - Nephrology and cardiology consulted - HD today per renal - syncope w/u: TTE, tele monitor, carotid U/S, orthostatics - f/u CT head - mild leuks but patient was on prednisone. will check CXR and UA to r/o infection for now. - Monitor CBC and BMP - check lipid panel, A1c, TSH - Continue home meds - Requested records from [facility] (patient had a recent hospitalization there 2 weeks ago) - Pain control and supportive care Pavan Navarrete M.D. January 20, 2018 13:50
[2018-01-20] MEDS ORDERED: Labetalol 200mg tab ORAL SCH (14:00)
--- NOTE | 2018-01-20 14:52 | Cardiac Electrophysiology PN ---
Assessment/Plan Assessment/Plan 1. Syncope. Was Orthostatic Happened from sitting down to standing up. Ruled out for myocardial infarction. Echocardiogram was ordered and performed which showed ejection fraction of 60%. Carotid duplex at [facility] reportedly negative. 2. History of hypertension. Continue Norvasc 10 mg daily and labetalol 200 mg b.i.d. and hemodialysis. 3. Hyperlipidemia, on Pravachol. 4. End-stage renal disease, on hemodialysis. 5. Anemia, on Procrit 6. Moderate to sever pulmonary HTN based on echo from [facility] Subjective Subjective Feeling better. No CP or SOB or recurrence of syncope Objective Last 24 Hour Vital Signs Date Time Temp Pulse Resp B/P (MAP) Pulse Ox O2 Delivery O2 Flow Rate FiO2 01/20/18 14:17 78 156/83 01/20/18 12:21 80 01/20/18 12:00 98.3 83 21 156/83 98 98.3 155/88 112/59 01/20/18 08:25 81 168/95 01/20/18 08:25 81 168/95 01/20/18 08:00 98.4 81 20 168/95 100 Room Air 98.4 01/20/18 04:10 89 01/20/18 04:05 87 01/20/18 04:00 85 01/20/18 04:00 99.6 85 20 135/76 99 Room Air 99.6 01/20/18 04:00 75 01/20/18 00:00 99.1 96 20 136/78 96 Room Air 99.1 01/19/18 21:00 82 01/19/18 20:57 86 136/72 01/19/18 20:34 Room Air 01/19/18 20:30 98.7 84 21 155/79 99 Room Air 98.7 01/19/18 20:21 97.9 79 20 167/88 Room Air 97.9 01/19/18 16:30 Room Air 01/19/18 16:30 97.6 81 20 165/87 Room Air 97.6 01/19/18 16:00 77 01/19/18 16:00 98.2 76 18 150/79 98 Room Air 98.2 Intake and Output 01/19/18 01/20/18 19:00 07:00 Intake Total 120 ml 400 ml Output Total 0 ml 1050 ml Balance 120 ml -650 ml Intake Oral 120 ml 400 ml Output Urine Total 0 ml Hemodialysis UF 1050 ml Laboratory Tests Test 01/20/18 04:50 White Blood Count 12.5 K/UL (4.8-10.8) H Red Blood Count 2.74 M/UL (4.70-6.10) L Hemoglobin 8.0 G/DL (14.2-18.0) L Hematocrit 26.1 % (42.0-52.0) L Mean Corpuscular Volume 95 FL (80-99) Mean Corpuscular Hemoglobin 29.2 PG (27.0-31.0) Mean Corpuscular Hemoglobin Concent 30.6 G/DL (32.0-36.0) L Red Cell Distribution Width 15.4 % (11.6-14.8) H Platelet Count 242 K/UL (150-450) Mean Platelet Volume 6.4 FL (6.5-10.1) L Neutrophils (%) (Auto) % (45.0-75.0) Lymphocytes (%) (Auto) % (20.0-45.0) Monocytes (%) (Auto) % (1.0-10.0) Eosinophils (%) (Auto) % (0.0-3.0) Basophils (%) (Auto) % (0.0-2.0) Differential Total Cells Counted 100 Neutrophils % (Manual) 81 % (45-75) H Lymphocytes % (Manual) 11 % (20-45) L Monocytes % (Manual) 7 % (1-10) Eosinophils % (Manual) 1 % (0-3) Basophils % (Manual) 0 % (0-2) Band Neutrophils 0 % (0-8) Platelet Estimate Adequate Platelet Morphology Normal Anisocytosis 1+ Sodium Level 140 MMOL/L (136-145) Potassium Level 3.9 MMOL/L (3.5-5.1) Chloride Level 99 MMOL/L (98-107) Carbon Dioxide Level 35 MMOL/L (21-32) H Anion Gap 6 mmol/L (5-15) Blood Urea Nitrogen 30 mg/dL (7-18) H Creatinine 5.6 MG/DL (0.55-1.30) H Estimat Glomerular Filtration Rate 12.6 mL/min (>60) Glucose Level 123 MG/DL (74-106) H Hemoglobin A1c 5.5 % (4.3-6.0) Uric Acid 3.9 MG/DL (2.6-7.2) Calcium Level 9.0 MG/DL (8.5-10.1) Phosphorus Level 3.0 MG/DL (2.5-4.9) Magnesium Level 1.9 MG/DL (1.8-2.4) Iron Level 17 ug/dL (50-175) L Total Iron Binding Capacity 215 ug/dL (250-450) L Percent Iron Saturation 8 % (15-50) L Unsaturated Iron Binding 198 ug/dL (112-346) Ferritin 308 NG/ML (8-388) Total Bilirubin 1.0 MG/DL (0.2-1.0) Gamma Glutamyl Transpeptidase 52 U/L (5-85) Aspartate Amino Transf (AST/SGOT) 16 U/L (15-37) Alanine Aminotransferase (ALT/SGPT) 23 U/L (12-78) Alkaline Phosphatase 78 U/L (46-116) Troponin I 0.030 ng/mL (0.000-0.056) Pro-B-Type Natriuretic Peptide 3124 pg/mL (0-125) H Total Protein 7.9 G/DL (6.4-8.2) Albumin 3.0 G/DL (3.4-5.0) L Globulin 4.9 g/dL Albumin/Globulin Ratio 0.6 (1.0-2.7) L Triglycerides Level 61 MG/DL (30-150) Cholesterol Level 141 MG/DL (< 200) LDL Cholesterol 74 mg/dL (<100) HDL Cholesterol 54 MG/DL (40-60) Cholesterol/HDL Ratio 2.6 (3.3-4.4) L Vitamin B12 Level > 2000 PG/ML (193-986) H Folate 17.2 NG/ML (8.6-58.9) Thyroid Stimulating Hormone (TSH) 0.489 uiU/mL (0.358-3.740) Objective HEAD AND NECK: No JVD. LUNGS: Clear. CARDIOVASCULAR: Regular S1 and S2 with no gallop or murmur. ABDOMEN: Soft. EXTREMITIES: No pitting edema. Dialysis access in the right IJ. Juan Luis Clark MD January 20, 2018 14:52
[2018-01-20 16:00] VITALS: BP 150/78
--- NOTE | 2018-01-22 09:29 | Discharge Summary ---
Discharge Summary Discharge Summary _ DATE OF ADMISSION: 01/19/2018 DATE OF DISCHARGE: 01/20/2018 REASON FOR ADMISSION: 62 years old male with past medical history significant for end-stage renal disease, recently on hemodialysis (for 2 weeks), hyperlipidemia, type 2 diabetes mellitus, hypertension, CVA, anemia, presented from home for syncopal episode which occurred earlier that morning. Patient reported syncopal episode He woke up at 3 am and while standing felt dizzy and subsequently had a syncopal episode. Episode lasted a minute or so as per patient. When he stand up the second time, he felt dizzy again. His called paramedics. Per EMS, blood pressure was low, in the 90s. Patient received small amount of fluid and brought to ED for further evaluation. Patient reported missing hemodialysis that day. Patient was recently hospitalized at [facility] for similar symptoms, where he was diagnosed with end-stage renal disease and started on hemodialysis. Patient reported that he had a CT head done at that time which revealed small stroke. He denied any head trauma, he denied headaches, fever, chills, nausea,vomiting ,abdominal pain , chest pain ,shortness of breath. Upon evaluation vital signs were stable, pulse oximetry was stable on room air. Patient noted to have mild leukocytosis WBC 12.1, hemoglobin 8.2 hematocrit 26.2. BUN 48, creatinine 7.4 ,consistent with known history of end-stage renal disease. Troponin was negative EKG revealed sinus rhythm, no acute ischemic changes. CT of the head revealed no acute intracranial pathology but showed old left basal ganglia lacunar infarct. Patient admitted with diagnosis of syncopal episode ,end-stage renal disease on hemodialysis, hypertension, diabetes mellitus, anemia, hyperlipidemia. CONSULTANTS: commodity lead Dr. Clark pulmonary dr Sun song plugger Dr. Blake [facility]: Patient admitted to monitored floor. Cardiology consult was requested. Serial troponin were negative . EKG revealed no acute ischemic changes. Patient was ruled out for acute myocardial infarction. Carotid duplex, as reported from [facility], was negative. Lipid panel was within normal limits, statin was continued. Orthostatic vital signs were positive for orthostatic changes. Patient was given 1 L of fluids as per song plugger. Echocardiogram revealed preserved ejection fraction of 60%. Blood pressure was managed with current regimen of antihypertensive as well as the hemodialysis. Blood pressure remained stable. DVT prophylaxis provided. According to commodity lead patient had a syncopal episode secondary to orthostatic changes. Pulse oximetry was stable on room air, no signs of respiratory distress . Aspiration precautions w3ere maintained. Photography Coordinator closely followed. Hemodialysis was arranged as per song plugger with close monitoring of renal parameters and electrolytes. Anemia workup was consistent with anemia of chronic disease. Epogen was continued. Blood sugar was managed with Prandin and sliding scale of insulin on as needed basis. Hemoglobin A1c 5.5, at goal. TSH within normal limits. Supportive care provided. Pain management was addressed. Mild leukocytosis was likely due to that the fact that patient was on prednisone, no evidence of infection at present. Patient condition was improved and he was stable for discharge home Due to to rapid and unexpected improvement in patient's condition, the patient was discharged in one day. FINAL DIAGNOSES: Syncope secondary to orthostatic changes End-stage renal disease on hemodialysis Hyperlipidemia Anemia Diabetes mellitus Hypertension DISCHARGE MEDICATIONS: See Medication Reconciliation list. DISCHARGE INSTRUCTIONS: Patient was discharged home. Follow up with primary care provider in one week.. Follow up with outpatient hemodialysis as scheduled I have been assigned to dictate discharge summary for this account. I was not involved in the patient's management. Gabi Alvarenga NP January 22, 2018 09:29
== END 2018-01-20 18:30 | disposition home or self-care (01) | DRG 312 ==
LOC: EDBD 04:57 → EMR 05:16 → 2E 06:03 → EDBEDREQ 07:26
PROC: 5A1D70Z Performance of Urinary Filtration, Intermittent, Less than 6 Hours Per Day (ICD-10-PCS; principal; 2018-01-19)
DX: I95.1 Orthostatic hypotension (principal); N18.6 End stage renal disease; I12.0 Hypertensive chronic kidney disease with stage 5 chronic kidney disease or end stage renal disease; D64.9 Anemia, unspecified; E11.22 Type 2 diabetes mellitus with diabetic chronic kidney disease; Z99.2 Dependence on renal dialysis; Z86.73 Personal history of transient ischemic attack (TIA), and cerebral infarction without residual deficits; E78.5 Hyperlipidemia, unspecified; I27.20 Pulmonary hypertension, unspecified; D72.829 Elevated white blood cell count, unspecified
CPT/HCPCS: 36415; 70450; 71045; 80053; 80061; 82550; 82553; 82607; 82728; 82746; 82962; 82977; 83036; 83540; 83550; 83735; 83880; 84100; 84443; 84484; 84550; 85007; 85025; 86140; 87081; 93005; 93306; 99285; J1815